=== PATIENT | female | born 1940 | race Caucasian/White ===

== ENCOUNTER → 2017-04-27 | Outpatient (CLI) | payer OTHER | LOC: BRMIMAGING 10:01 | PROVIDERS: ATTEND Family Medicine | DX: Z13.820 Encounter for screening for osteoporosis (principal); M85.89 Other specified disorders of bone density and structure, multiple sites ==

== ENCOUNTER → 2018-04-27 | Outpatient (CLI) | payer OTHER | LOC: FIMAGING 14:33 | PROVIDERS: ATTEND Family Medicine | DX: M25.512 Pain in left shoulder (principal); R20.0 Anesthesia of skin ==

== ENCOUNTER → 2018-05-05 | Outpatient (CLI) | payer OTHER | LOC: BHFA 15:30 | PROVIDERS: ATTEND Internal Medicine Cardiovascular Disease | DX: I35.0 Nonrheumatic aortic (valve) stenosis (principal); R42 Dizziness and giddiness ==

== ENCOUNTER 2018-05-06 10:18 | Inpatient (IN) | payer OTHER ==
--- NOTE | 2018-05-06 10:48 | EDPHY ---
H & P Stated Complaint: SOB, dizzy - Personal History Current Tetanus/Diphtheria Vaccine: Unsure Current Tetanus Diphtheria and Acellular Pertussis (TDAP): Unsure - Medical/Surgical History Hx Asthma: No Hx Chronic Respiratory Disease: No Hx Diabetes: No Hx Cardiac Disease: Yes Hx Renal Disease: No Hx Cirrhosis: No Hx Alcoholism: No Hx HIV/AIDS: No Hx Splenectomy or Spleen Trauma: No Other PMH: osteopenia - Social History Smoking Status: Never smoked Time Seen by Provider: 05/06/18 10:39 HPI/ROS: CHIEF COMPLAINT: "My doctor told me to vann over here" HISTORY OF PRESENT ILLNESS: 77-year-old female via private vehicle accompanied by daughter and who described receiving a phone call from her PCP Dr. Carolina Hunt after receiving her echocardiography report from yesterday told the patient to come to the ER "to get my heart valve replaced". Patient describes no prior cardiac history history, describes going to Dr. Carolina Hunt recently for complaints of feeling dizzy and near syncope for the past 1 month with no syncopal episodes. Not related to activity. No current complaints of chest pain or dyspnea. PRIMARY CARE PROVIDER: Dr. Carolina Hunt REVIEW OF SYSTEMS: 10 systems reviewed and negative with the exception of the elements mentioned in the history of present illness PAST MEDICAL & SURGICAL HISTORY: Osteopenia. Bicuspid aorta. SOCIAL HISTORY:Nonsmoker. No drug use. . PHYSICAL EXAM (Prior to examination, patient consented to physical exam, hands were washed and my usual and customary physical exam procedures followed) 1) GENERAL: Well-developed, well-nourished, alert and oriented. Appears to be in no acute distress. 2) HEAD: Normocephalic, atraumatic 3) HEENT: Pupils equal, round, reactive to light bilaterally. Sclera anicteric. 4) NECK: Full range of motion, no meningeal signs. No carotid bruit 5) LUNGS: Clear auscultation bilaterally, no wheezes, no rhonchi, no retractions. 6) HEART: Blowing holosystolic murmur. Regular rate and rhythm, no murmur, no heave, no gallop. 7) ABDOMEN: No guarding, no rebound, no focal tenderness, negative McBurney's, negative Rossi's, negative Rovsing's, negative peritoneal sign, 8) MUSCULOSKELETAL: Moving all extremities, no focal areas of tenderness, no obvious trauma. No peripheral edema or discoloration. 9) BACK: No CVA tenderness, no midline vertebral tenderness, no fluctuance, no step-off, no obvious trauma, no visual or palpable abnormality. 10) SKIN: No rash, no petechiae. 11) Psychiatric: Patient is oriented X 3, there is no agitation. DIFFERENTIAL DIAGNOSIS: In no particular order, including but not limited to myocardial ischemia, pulmonary embolus, chest wall pain, pleural inflammation and pulmonary infectious causes. (Don Albright) Constitutional: Initial Vital Signs Temperature (C) 37.1 C 05/06/18 10:23 Heart Rate 105 H 05/06/18 10:23 Respiratory Rate 16 05/06/18 10:23 Blood Pressure 175/106 H 05/06/18 10:23 O2 Sat (%) 95 05/06/18 10:23 O2 Delivery Mode Room Air Allergies/Adverse Reactions: No Known Allergies Allergy (Verified 05/06/18 11:38) Home Medications: Medication Instructions Recorded Alendronate Sodium [Fosamax 70 MG 70 mg PO LOCKETT@0700 05/06/18 (*)] Aspirin [Aspirin 81mg (*)] 81 mg PO DAILY 05/06/18 Cholecalciferol Vit D3 [Vitamin D3 1,000 units PO DAILY 05/06/18 (*)] Multivitamins [Multivitamin (*)] 1 each PO DAILY 05/06/18 Medical Decision Making - Diagnostics Imaging Results: Imaging Impressions Chest X-Ray 05/06/18 10:40 Impression: Normal. ED Course/Re-evaluation: 10:47 a.m.: Care of patient under supervision of secondary supervising physician Dr Andre Argueta who also evaluated the patient . 10:50 a.m.: Telephonic consultation with Dr. Ankit Lzaaro cardiology who will come to the ER to evaluate patient. 11:12 a.m.: Phone call from Salvador Castro cardiology informs me that patient will be taking the cardiac catheterization lab this afternoon, requests admission to hospitalist service. 11:29 a.m.: Consultation with hospitalist, admit to Dr. Romero (Don Albright ) Other Provider: PHYSICIAN DOCUMENTATION: The patient was evaluated and managed by the Physician Submarine Worker and myself. I have reviewed the chart and agree with the findings and plan of care as documented. In addition, I examined the patient myself at 1124. History confirmed as lightheadedness, recent echo showing worsening and severe aortic stenosis. Physical findings as follows: Regular rate rhythm with a 3/6 systolic murmur. Admission for cardiology consultation, CT surgery consultation. I am the secondary supervising physician. (Andre Argueta) - Data Points Laboratory Results: Laboratory Results 05/06/18 10:46 05/06/18 10:46 05/06/18 05/06/18 05/06/18 10:51 10:46 10:46 WBC RBC Hgb Hct MCV MCH MCHC RDW Plt Count MPV Neut % (Auto) Lymph % (Auto) [place] % (Auto) Eos % (Auto) Baso % (Auto) Nucleat RBC Rel Count Absolute Neuts (auto) Absolute Lymphs (auto) Absolute Monos (auto) Absolute Eos (auto) Absolute Basos (auto) Absolute Nucleated RBC Immature Gran % Immature Gran # PT 12.9 SEC SEC (12.0-15.0) INR 0.95 (0.83-1.16) APTT 27.8 SEC SEC (23.0-38.0) D-Dimer 0.31 ug/mLFEU ug/mLFEU (0.00-0.50) Sodium 140 mEq/L mEq/L (135-145) Potassium 4.1 mEq/L mEq/L (3.3-5.0) Chloride 106 mEq/L mEq/L (97-110) Carbon Dioxide 23 mEq/l mEq/l (22-31) Anion Gap 11 mEq/L mEq/L (6-14) BUN 19 mg/dL mg/dL (7-23) Creatinine 0.7 mg/dL mg/dL (0.6-1.0) Estimated GFR > 60 Glucose 117 mg/dL H mg/dL (70-100) Calcium 10.2 mg/dL mg/dL (8.5-10.4) POC Troponin I 0.00 ng/mL ng/mL (0.00-0.08) 05/06/18 10:46 WBC 8.51 10^3/uL 10^3/uL (3.80-9.50) RBC 5.06 10^6/uL 10^6/uL (4.18-5.33) Hgb 14.7 g/dL g/dL (12.6-16.3) Hct 42.9 % % (38.0-47.0) MCV 84.8 fL fL (81.5-99.8) MCH 29.1 pg pg (27.9-34.1) MCHC 34.3 g/dL g/dL (32.4-36.7) RDW 13.1 % % (11.5-15.2) Plt Count 236 10^3/uL 10^3/uL (150-400) MPV 12.2 fL H fL (8.7-11.7) Neut % (Auto) 68.3 % % (39.3-74.2) Lymph % (Auto) 21.5 % % (15.0-45.0) [place] % (Auto) 8.1 % % (4.5-13.0) Eos % (Auto) 1.1 % % (0.6-7.6) Baso % (Auto) 0.5 % % (0.3-1.7) Nucleat RBC Rel Count 0.0 % % (0.0-0.2) Absolute Neuts (auto) 5.82 10^3/uL 10^3/uL (1.70-6.50) Absolute Lymphs (auto) 1.83 10^3/uL 10^3/uL (1.00-3.00) Absolute Monos (auto) 0.69 10^3/uL 10^3/uL (0.30-0.80) Absolute Eos (auto) 0.09 10^3/uL 10^3/uL (0.03-0.40) Absolute Basos (auto) 0.04 10^3/uL 10^3/uL (0.02-0.10) Absolute Nucleated RBC 0.00 10^3/uL 10^3/uL (0-0.01) Immature Gran % 0.5 % % (0.0-1.1) Immature Gran # 0.04 10^3/uL 10^3/uL (0.00-0.10) PT INR APTT D-Dimer Sodium Potassium Chloride Carbon Dioxide Anion Gap BUN Creatinine Estimated GFR Glucose Calcium POC Troponin I Point of Care Test Results: Chemistry 05/06/18 10:51 POC Troponin I 0.00 ng/mL ng/mL (0.00-0.08) Departure - Departure Disposition: [facility] Acute Clinical Impression: Aortic stenosis with bicuspid valve Condition: Fair
[2018-05-06 11:03] LABS: PLATELET COUNT 236 10^3/uL (150-400)
[2018-05-06 11:23] LABS: INR 0.95 (0.83-1.16); PROTIME(PATIENT) 12.9 SEC (12.0-15.0)
--- NOTE | 2018-05-06 12:08 | CPEKG ---
Test Reason : OPEN Blood Pressure : / mmHG Vent. Rate : 089 BPM Atrial Rate : 090 BPM P-R Int : 132 ms QRS Dur : 078 ms QT Int : 343 ms P-R-T Axes : 032 -32 144 degrees QTc Int : 418 ms Sinus rhythm LVH with secondary repolarization abnormality Confirmed by Andre Argueta ([id number]) on 05/06/2018 12:08:09 PM Referred By: Confirmed By:Andre Argueta
[2018-05-06] MEDS ORDERED: TEMAZEPAM 15 MG CAP PO PRN (12:48)
[2018-05-06] MEDS ORDERED: DIAZEPAM 5 MG TAB PO ONE (12:48)
[2018-05-06] MEDS ORDERED: ASPIRIN EC 325 MG TAB PO ONE ×2 (12:48→15:19)
[2018-05-06] MEDS ORDERED: diphenhydrAMINE 25 MG CAP PO ONE ×2 (12:48→15:19)
[2018-05-06] MEDS ORDERED: FAMOTIDINE 20 MG TAB PO ONE (12:48)
[2018-05-06] MEDS ORDERED: NITROGLYCERIN 0.4 MG BTL SL PRN (12:48)
[2018-05-06] MEDS ORDERED: NS 1,000 ML IV SCH (13:00)
--- NOTE | 2018-05-06 13:47 | GCON ---
CARDIOLOGY CONSULTATION INDICATION FOR CARDIOLOGY CONSULTATION: Known severe aortic stenosis. REQUESTING PHYSICIAN: GEOVANNY Gomez, Emergency Department Services. HISTORY OF PRESENT ILLNESS: Ms. Harding is a 77-year-old female. She has significant past history of known aortic stenosis, questionable history of questionable bicuspid aortic valve. She reports over the last month she has been noticing lightheadedness, mostly when she is standing. This usually res olves when she sits down. She reports no palpitations at the time of her symptoms. She has also not ed some mild shortness of breath, feeling that potentially this may have also worsened in the last mo nth. She denies any chest pressure or pain. She does state that she had recently seen her PCP, Dr. Carolina Hunt, who had her undergo echocardiogram, which she had performed last night at [facility]. It was noted that she had a normal LV size and systolic function with EF of 60% with normal wall mo tion, she had borderline concentric LVH with mild diastolic dysfunction, her LA was mildly enlarged, her aortic valve was noted to be critically stenosed, with a peak gradient of 80 mmHg and a mean grad ient of 54 mmHg and a valve area of 0.7 cm2. In comparison to previous echos in 2013, her mean gradi ent went from 24 mmHg to 54 mmHg. Due to this, her PCP's office called her this morning and asked he r to come to the emergency department for further evaluation. At current time, at my examination, laura ricketts denies any palpitations, orthopnea, PND, edema, actual syncope, or symptoms suggestive of TIA or CV A. PAST MEDICAL HISTORY: Patient with significant past medical history that includes aortic stenosis as mentioned above, osteopenia, and osteoarthritis. PAST SURGICAL HISTORY: Tonsillectomy, appendectomy, and wisdom teeth removal. FAMILY HISTORY: Patient reports father had valvular heart disease, which was diagnosed in his 70s, b ut she is uncertain of what. Denies any family history of coronary artery disease, denies any family history of sudden cardiac . SOCIAL HISTORY: She is retired, she lives with her , she [place]birds between [place] and [facility]. She denies any tobacco abuse, she occasionally drinks alcohol less than once a week, and denies any illicit drug use. ALLERGIES: Patient reports no known allergies. HOME MEDICATIONS: Multivitamins 1 tablet p.o. daily, aspirin 81 mg p.o. daily, Fosamax 70 mg p.o. ev phyllis Thursday, and vitamin D 1000 units p.o. daily. REVIEW OF SYSTEMS: A 10-point review of systems done on patient all negative except as mentioned abo ve. PHYSICAL EXAMINATION: GENERAL APPEARANCE: Short statured, mildly obese, female. She is a lert and oriented to person, place, time, and situation. Appears to be under no acute distress. VIT AL SIGNS: Current vital signs are blood pressure of 144/78; heart rate of 81, sinus rhythm on the thu itor; respirations are 16; saturating 97% on room air; temperature of 36.8 degrees Celsius. HEENT: Head is normocephalic. Lips and tongue are pink and moist with no signs of cyanosis. Conjunctivae p ink. NECK: Trachea is midline, +2 carotid pulses bilateral, no auscultated bruits, no jugular vein distention. RESPIRATORY: Lungs are clear to auscultation. No rhonchi, rales, or wheezes; no access ory muscle use; no intercostal muscle retraction noted. CARDIAC: Regular rate, regular rhythm; S1, S2; no S3, S4; 4/6 systolic murmur noted right and left upper chest. ABDOMEN: Soft, nontender, thad l sounds x4 quadrants, no organomegaly, no palpable masses. SKIN: [place], warm, dry, no cyanosis, no clubbing, no peripheral edema. VASCULAR: +2 carotids bilateral, +2 radials bilateral, +2 dorsal ped al and posterior tibial pulses bilateral. LABORATORY STUDIES: Laboratory studies drawn today show WBC of 8.51, hemoglobin of 14.7, hematocrit of 42.9, platelet count of 236, INR 0.95, D-dimer 0.31, sodium 140, potassium 4.1, chloride 106, CO2 23, BUN 19, creatinine 0.7, glucose 117, calcium 10.2, troponin 0.00. STUDIES: Echocardiogram done at [facility] yesterday showing normal LV size and systolic function with EF of 60% with no wall motion abnormalities, concentric LVH and mild diastolic dysfunction note d, borderline left atrial enlargement, critical aortic stenosis with moderate AI with peak and mean g radients of 80 mmHg and 54 mmHg, respectively. MIRI was measured at 0.7 cm2. Mild MR without mitral valve prolapse, mild TR with estimated mild pulmonary hypertension, ascending aorta measured at 4.4 c m. Electrocardiogram done today showing sinus rhythm, normal axis, early R-wave progression in anter ior leads. Leftward axis. Chest x-ray showing no acute cardiopulmonary disease. ASSESSMENT AND PLAN: Critical aortic stenosis. Patient reporting episodes of lightheadedness, she h as had significantly worsened aortic stenosis, now considered critical with a mean gradient of 54 and a peak gradient of 80 mmHg, valve area was measured at 0.7 cm2. Her LV function has maintained with in normal limits, she shows no signs of heart failure. She is in fairly healthy respect status. At this time, patient potentially needs to have aortic valve replacement and repair. Was also noted to have dilated ascending aorta at 4.4, potentially this could also be fixed at this time. We will plan for her to undergo right and left heart catheterization, to be performed by Dr. Marie, risks and be nefits of this procedure were explained to the patient and her family, they verbalized understanding and are wanting to proceed. Pending results of testing, we will then consult CT Surgery for their ev aluation of her valvular heart disease. Thank you for this consultation. Further recommendations will come post catheterization. /[id number]/MODL
[2018-05-06] MEDS ORDERED: LIDOCAINE 1% 300 MG/30 ML SDV ONE (14:54)
[2018-05-06] MEDS ORDERED: MIDAZOLAM 2 MG/2 ML VIAL ONE (14:54)
[2018-05-06] MEDS ORDERED: IOPAMIDOL (ISOVUE-370) 150 ML BTL IV ONE (14:54)
[2018-05-06] MEDS ORDERED: fentaNYL 100 MCG/2 ML INJ ONE (14:54)
--- NOTE | 2018-05-06 15:04 | PDGENHP ---
History and Physical - Chief Complaint dizzyness - History of Present Illness 77-year-old female via private vehicle accompanied by daughter and who described receiving a phone call from her PCP Dr. Carolina Hunt after receiving her echocardiography report from yesterday told the patient to come to the ER "to get my heart valve replaced". Patient describes no prior cardiac history history, describes going to Dr. Carolina Hunt recently for complaints of feeling dizzy and near syncope for the past 1 month with no syncopal episodes. Not related to activity. No current complaints of chest pain or dyspnea. Cardiology consulted by the ER. Currently NPO. no cp or sob. PRIMARY CARE PROVIDER: Dr. Carolina Hunt PAST MEDICAL & SURGICAL HISTORY: Osteopenia. Bicuspid aorta. tonsillectomy, OA, SOCIAL HISTORY:Nonsmoker. No drug use. . FMHx: ? valvular heart disease History Information - Allergies/Home Medication List Allergies/Adverse Reactions: No Known Allergies Allergy (Verified 05/06/18 11:38) Home Medications: Alendronate Sodium [Fosamax 70 MG (*)] 70 mg PO LOCKETT@0700 05/06/18 [Last Taken 10/14] Aspirin [Aspirin 81mg (*)] 81 mg PO DAILY 05/06/18 [Last Taken 05/04/18] Cholecalciferol Vit D3 [Vitamin D3 (*)] 1,000 units PO DAILY 05/06/18 [Last Taken Unknown] Multivitamins [Multivitamin (*)] 1 each PO DAILY 05/06/18 [Last Taken Unknown] I have personally reviewed and updated: medical history, social history - Social History Smoking Status: Never smoked Review of Systems Review of Systems: ROS: 10pt was reviewed & negative except for what was stated in HPI & below Physical Exam Physical Exam: Temp Pulse Resp BP Pulse Ox 36.6 C 83 16 171/85 H 96 05/06/18 13:16 05/06/18 13:16 05/06/18 13:16 05/06/18 13:16 05/06/18 13:16 Constitutional: no apparent distress Eyes: PERRL Ears, Nose, Mouth, Throat: moist mucous membranes, hearing normal Cardiovascular: regular rate and rhythym, systolic murmur Respiratory: no respiratory distress, no rales or rhonchi, clear to auscultation Gastrointestinal: normoactive bowel sounds Skin: warm Neurologic: AAOx3 Psychiatric: interacting appropriately, not anxious, not encephalopathic Lymph, Heme, Immunologic: No petechiae Lab Data & Imaging Review 05/06/18 10:46 05/06/18 10:46 WBC 8.51 10^3/uL (3.80-9.50) 05/06/18 10:46 RBC 5.06 10^6/uL (4.18-5.33) 05/06/18 10:46 Hgb 14.7 g/dL (12.6-16.3) 05/06/18 10:46 Hct 42.9 % (38.0-47.0) 05/06/18 10:46 MCV 84.8 fL (81.5-99.8) 05/06/18 10:46 MCH 29.1 pg (27.9-34.1) 05/06/18 10:46 MCHC 34.3 g/dL (32.4-36.7) 05/06/18 10:46 RDW 13.1 % (11.5-15.2) 05/06/18 10:46 Plt Count 236 10^3/uL (150-400) 05/06/18 10:46 MPV 12.2 fL (8.7-11.7) H 05/06/18 10:46 Neut % (Auto) 68.3 % (39.3-74.2) 05/06/18 10:46 Lymph % (Auto) 21.5 % (15.0-45.0) 05/06/18 10:46 [place] % (Auto) 8.1 % (4.5-13.0) 05/06/18 10:46 Eos % (Auto) 1.1 % (0.6-7.6) 05/06/18 10:46 Baso % (Auto) 0.5 % (0.3-1.7) 05/06/18 10:46 Nucleat RBC Rel Count 0.0 % (0.0-0.2) 05/06/18 10:46 Absolute Neuts (auto) 5.82 10^3/uL (1.70-6.50) 05/06/18 10:46 Absolute Lymphs (auto) 1.83 10^3/uL (1.00-3.00) 05/06/18 10:46 Absolute Monos (auto) 0.69 10^3/uL (0.30-0.80) 05/06/18 10:46 Absolute Eos (auto) 0.09 10^3/uL (0.03-0.40) 05/06/18 10:46 Absolute Basos (auto) 0.04 10^3/uL (0.02-0.10) 05/06/18 10:46 Absolute Nucleated RBC 0.00 10^3/uL (0-0.01) 05/06/18 10:46 Immature Gran % 0.5 % (0.0-1.1) 05/06/18 10:46 Immature Gran # 0.04 10^3/uL (0.00-0.10) 05/06/18 10:46 PT 12.9 SEC (12.0-15.0) 05/06/18 10:46 INR 0.95 (0.83-1.16) 05/06/18 10:46 APTT 27.8 SEC (23.0-38.0) 05/06/18 10:46 D-Dimer 0.31 ug/mLFEU (0.00-0.50) 05/06/18 10:46 Sodium 140 mEq/L (135-145) 05/06/18 10:46 Potassium 4.1 mEq/L (3.3-5.0) 05/06/18 10:46 Chloride 106 mEq/L (97-110) 05/06/18 10:46 Carbon Dioxide 23 mEq/l (22-31) 05/06/18 10:46 Anion Gap 11 mEq/L (6-14) 05/06/18 10:46 BUN 19 mg/dL (7-23) 05/06/18 10:46 Creatinine 0.7 mg/dL (0.6-1.0) 05/06/18 10:46 Estimated GFR > 60 05/06/18 10:46 Glucose 117 mg/dL (70-100) H 05/06/18 10:46 Calcium 10.2 mg/dL (8.5-10.4) 05/06/18 10:46 POC Troponin I 0.00 ng/mL (0.00-0.08) 05/06/18 10:51 Assessment & Plan Assessment: #Critical Aortic stenosis #HTN Plan: Cards following Cardiac Cath today with consideration for cardiothoracic surgery pending results Hydralazine PRN HTN NPO
[2018-05-06] MEDS ORDERED: hydrALAZINE 20 MG/ML VIAL IVP PRN (15:05)
[2018-05-06] MEDS ORDERED: DIAZEPAM 5 MG TAB ONE (15:19)
[2018-05-06] MEDS ORDERED: FAMOTIDINE 20 MG TAB ONE (15:19)
[2018-05-06] MEDS ORDERED: VERAPAMIL 5 MG/2 ML VIAL ONE (15:25)
[2018-05-06] MEDS ORDERED: HEPARIN 10,000 UNIT/10 ML MDV (1,000 UNIT/ML) ONE (15:25)
[2018-05-06] MEDS ORDERED: ATROPINE SULFATE 1 MG/10 ML SYR IVP PRN (16:53)
[2018-05-06] MEDS ORDERED: ONDANSETRON 4 MG/2 ML VIAL IVP PRN (16:53)
--- NOTE | 2018-05-06 19:39 | CPIP ---
DATE OF PROCEDURE: 05/06/2018 PROCEDURE PERFORMED: 1. Selective coronary angiography. 2. Left heart catheterization. 3. Left ventriculogram. 4. TR band arteriotomy repair. This was a left radial artery approach. COMPLICATIONS: None. INDICATOIN FOR THE PROCEDURE/APPROPRIATE USE CRITERIA: The patient developed symptomatic dizziness a nd had a loud murmur on exam, ultimately underwent an echocardiogram and was found to have critical a ortic stenosis. She was admitted to the hospital and I was asked to see her for consultation for clifford nary angiography to prep for possible valve surgery and determine if she has coronary disease to help determine whether she would be a better candidate for TAVR versus an open aortic valve replacement s urgphyllis. PROCEDURE IN DETAIL: After informed consent was obtained, n.p.o. status was confirmed, the region of the left wrist was cleaned, prepped, and draped in sterile fashion. A plethysmography and trace assi sted Jorge test was performed documenting dual arterial supply to the left index finger. The patient then underwent the previously mentioned diagnostic procedures with the use of a AL1, JL35, and a 5-Fr ench pigtail catheter. Standard wire exchange technique was utilized for all catheter exchanges. 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 It was best selectively injected with an AL1 catheter. We took a single picture of that , documenting a dominant right coronary, which gives rise to the posterior descending distally. There was brisk and CORNELIA-3 flow to the distal vessel. The left main coronary lumen was selectively injecte d with a JL 35 diagnostic catheter. The left main is approximately 6 mm in size and bifurcates into a n LAD and circumflex system. The LAD arises in its usual location, giving rise to 3 important diagona l vessels and courses the anterior apex without flow-limiting obstruction, dissection, or thrombus. T he left circumflex obtuse marginal system is widely patent and a 4 mm vessel without evidence of sign ificant coronary artery disease, plaque formation or other problems. We then used the AL1 catheter and a straight Glidewire to cross the aortic valve. The AL1 catheter wa s advanced into the ventricle and the AL1 was switched out over a standard J-wire for a pigtail scout ter. The systolic pressure was documented to be 205 with an LVEDP of 17. The patient underwent left v entriculogram in the BARROSO projection, demonstrating preserved and hypercontractile left ventricular sy stolic function under pressurized injection. The ejection fraction was estimated to be 65-70 percent. The visualized portion of the thoracic aorta revealed a dilated aortic root which is known to be ane urysmal and was measured to be 4.4 cm by echocardiogram. The patient was noted to have a gradient upo n pullback of approximately 42 mmHg. We did not have a Yuri catheter that was 5-Czech in size an d therefore did not do simultaneous pressures. However, the overall peak to peak gradient appeared to be around 40, which is less than was estimated by echocardiography. SUMMARY OF FINDINGS: 1. Normal left ventricular chamber size with preserved left ventricular and hypercontractile left ve ntricular systolic function. Ejection fraction is 65-70 percent. There is mildly elevated left ventri cular end-diastolic pressure. 2. Severe aortic stenosis is present along with a mildly dilated ascending thoracic aortic aneurysm. 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 No evidence of significant coronary disease, dissection, or thromb us was noted. The patient has a normal coronary system. PLAN: The patient appears to be a good candidate for either open repair or surgery. Certainly, her a ge would likely favor a TAVR as well as the fact that her thoracic cage is fairly small and she is a fairly small woman in stature. She may be best served with a trans aortic valve replacement as oppose d to an open surgical repair. I have asked Dr. Festus Thomas to see her in consultation who is facile on both of those techniques and he will render opinion as to what might be the best operation for this 77-year-old lady. /[id number]/MODL
[2018-05-06] MEDS: ACETAMINOPHEN 325 MG TAB PO PRN (20:04)
[2018-05-07] MEDS ORDERED: IOPAMIDOL (ISOVUE 370) 100 ML BTL IV ONE (08:55)
--- NOTE | 2018-05-07 12:57 | HOSPPROG ---
Hospitalist Progress Note Assessment/Plan: #Critical Aortic stenosis #Ascending Thoracic Aortic aneurysm #HTN Plan: Cards following. Cardiac cath with no significant CAD. They feel that she is a good candidate for either TAVR or open aortic valve replacement. Cardiothoracic surgery has been consulted, reccs pending Hydralazine PRN HTN Subjective: no cp or sob. no n/v. bp is better today Objective: Vital Signs Temp Pulse Resp BP Pulse Ox 36.9 C 76 18 160/88 H 92 05/07/18 12:00 05/07/18 12:00 05/07/18 12:00 05/07/18 12:00 05/07/18 12:00 05/06/18 05/07/18 05/08/18 05:59 05:59 05:59 Intake Total 900 Balance 900 PT 12.9 SEC (12.0-15.0) 05/06/18 10:46 INR 0.95 (0.83-1.16) 05/06/18 10:46 - Physical Exam Constitutional: no apparent distress Eyes: PERRL, EOMI Ears, Nose, Mouth, Throat: moist mucous membranes Cardiovascular: regular rate and rhythym, No no murmur, rub, or gallop, No edema Respiratory: no respiratory distress, no rales or rhonchi Gastrointestinal: normoactive bowel sounds, soft, non-tender abdomen Skin: warm Neurologic: AAOx3 Psychiatric: interacting appropriately, not anxious, not encephalopathic Lymph, Heme, Immunologic: No petechiae ICD10 Worksheet Patient Problems: Problems Problem Status Onset Aortic stenosis with bicuspid valve Acute
--- NOTE | 2018-05-07 14:09 | ASMTCMCOM ---
CM Note CM Note Notes: CM spoke to VILLA Deluna about this pt. Pt is a 77 y/o female admitted for near syncope and aortic stenosis. CT will determine if pt will have TAVR or open heart. Needs are TBD at this time. CM to follow. Plan: TBD Date Signed: 05/07/2018 02:06 PM Electronically Signed By:ADRIAN Peraza
--- NOTE | 2018-05-07 14:10 | PDCTREPORT ---
Cardiothoracic Procedure Rpt Cardiothoracic Procedure Report: Asked to see this 77 year old for severe and dizzines/presyncope Cath shows normal coronaries Echo pk cory 4.6m/s. nl LVEF, small LVOT there is a small ascending aortic enlargement Rec TAVR due to increased surgical risk from age and frailty Plan is for CT today and TAVR thursday Patient Problems: Problems Problem Status Onset Aortic stenosis with bicuspid valve Acute
--- NOTE | 2018-05-07 14:11 | PDCARPN ---
Cardiology Progress Note Chief Complaint: Patient reports she is nervous, would like to go home. Assessment/Plan: Assessment: 77-year-old female with past history of hypertension and aortic stenosis, with recent echocardiogram showing worsening stenosis, echocardiogram done on 2017 noting normal LV size and systolic function with EF of 60% with no wall motion abnormalities, concentric LVH and mild diastolic dysfunction, borderline LA enlargement, critical aortic stenosis with moderate AI with peak gradient of 80 mm Hg and mean gradient of 54 mm Hg. MIRI measuring 0.7 cm2, mild MR without mitral valve prolapse, mild TR, dilated ascending aorta at 4.4 cm. Sent to the ER yesterday by PCP, due to worsening , and episodes of lightheadedness over last month. Underwent cardiac catheterization by Dr. Marie on 05/06/2018 noting no significant flow limiting CAD. Preserved LV with hypercontractility systolic function. Patient has been seen by CT surgery, Dr. Bergman. 05/07/2108: Patient reports no chest pain, pressure, or shortness of breath. She denies of any episodes of lightheadedness during her hospitalization. She has underwent carotid ultrasound, which noted no flow limiting disease. CTA of chest and abdomen have been done, results currently pending. Patient noted on continuous cardiac monitoring this morning to have a 20 sec run of SVT with rates up to 150 BPM. Patient reports she was asymptomatic. Plan: 1. Critical : Patient being evaluated by CT surgery, CT scans pending. Defer to CT surgery, with consideration of patient undergoing open valve replacement versus TAVR. Have spoken to valve clinic clerk. 2. Ascending aorta aneurysm: Defer to CT surgery. 3. Run of SVT: Patient was asymptomatic, rate up to 150 BPM lasting for approximately 20 sec. At 7:30 a.m. This morning. Will start her on metoprolol tartrate at 12.5 mg p.o. Twice daily. 4. Hypertension: Patient noted to have elevated blood pressures since hospital admission. Started on beta-kaleigh as mentioned above. Would avoid any medication that would reduce preload due to her critical aortic stenosis. 05/07/18 14:21 Subjective: Patient denies of any chest pressure, pain, shortness of breath palpitations, lightheadedness, near-syncope, or syncopal events. Reports no symptoms suggestive of TIA or CVA. Reviewed/Discussed With: hospitalist (Dr Romero), other (Dr. Marie and Mary Delarosa RN, valve clinic clerk) Objective: Vital Signs (8 Hrs) Temp Pulse Resp BP Pulse Ox 05/07/18 12:00 36.9 C 76 18 160/88 H 92 05/07/18 07:23 36.4 C 92 16 152/77 H 92 Intake/Output (24 Hrs) 05/06/18 05/07/18 05/08/18 05:59 05:59 05:59 Intake Total 900 Balance 900 Intake: Oral (ml) 300 IV Intake (ml) 600 Other: Weight 67.585 kg Number of Voids Toilet 1 Result Diagrams: 05/06/18 10:46 05/06/18 10:46 - Physical Exam Constitutional: WDWN, no apparent distress Ears, Nose, Mouth, Throat: moist mucous membranes Cardiovascular: regular rate and rhythm, systolic murmur (4/6 systolic murmur upper chest.), pulses symmetric bilat, No jugular vein distention Peripheral Pulses: 2+: carotid (R), carotid (L), dorsalis-pedis (R), dorsalis- pedis (L) Respiratory: clear to auscultate bilat, no crackles, no wheezes Gastrointestinal: normoactive bowel sounds Skin: warm, no edema, other (Left wrist, catheter insertion site, with no redness, swelling, drainage, or ecchymosis.) Neurologic: AAOx3 Psychiatric: cooperative, interactive, following commands ICD10 Worksheet Patient Problems: Problems Problem Status Onset Aortic stenosis with bicuspid valve Acute
[2018-05-07] MEDS: METOPROLOL TARTRATE 25 MG TAB PO SCH ×2 (15:10→21:40)
--- NOTE | 2018-05-07 16:43 | PDMN ---
Medical Necessity Medical necessity: Change to IP, as of 05/07/18, per & MCG MG-C (Cardiology); los >2 mn for ongoing management of critical aortic stenosis w/severe dizziness , HTN, run of SVT & ascending aortic aneurysm; requiring Cardiothoracic surgery consult w/TAVR & med management; comorbid advanced age
[2018-05-08] MEDS: METOPROLOL TARTRATE 25 MG TAB PO SCH ×2 (09:09→21:32)
--- NOTE | 2018-05-08 11:02 | PDCARPN ---
Cardiology Progress Note Assessment/Plan: Assessment: 1. Critical (symptomatic) Plan: -CT surgery consultation today -Plan for TAVR Thursday, May 10, 2018 05/08/18 10:59 Subjective: Mrs. Harding is a pleasant 77 year old female with symptomatic critical admitted with near syncope, lightheadedness and hastings. She has been feeling well today. No syncope, chest pain or sob at rest. Telemetry demonstates NSR with occaisonal PAC with compensatroy pause. Reviewed/Discussed With: multidisciplinary team Objective: Vital Signs (8 Hrs) Temp Pulse Resp BP Pulse Ox 05/08/18 07:32 36.5 C 66 17 148/79 H 91 L 05/08/18 04:00 36.6 C 68 16 128/71 H 92 Intake/Output (24 Hrs) 05/07/18 05/08/18 05/09/18 05:59 05:59 05:59 Intake Total 920 Output Total 550 300 Balance 370 -300 Intake: Oral (ml) 920 Output: Urine (ml) 550 300 Toilet 550 300 Other: Weight 67.8 kg Number of Voids Toilet 1 1 Number of Stools Toilet 1 Result Diagrams: 05/06/18 10:46 05/06/18 10:46 - Physical Exam Cardiovascular: regular rate and rhythm, systolic murmur Respiratory: clear to auscultate bilat Neurologic: AAOx3, CN II-XII grossly intact Psychiatric: cooperative, interactive, following commands ICD10 Worksheet Patient Problems: Problems Problem Status Onset Aortic stenosis with bicuspid valve Acute
--- NOTE | 2018-05-08 11:34 | ASMTCMCOM ---
CM Note CM Note Notes: Plan is for TAVR Thursday 05/10. PT/OT will consult post-operatively. Case Mangement will follow. Date Signed: 05/08/2018 11:33 AM Electronically Signed By:Cassidy Christianson RN
--- NOTE | 2018-05-08 13:04 | HOSPPROG ---
Hospitalist Progress Note Assessment/Plan: #Critical Aortic stenosis #Ascending Thoracic Aortic aneurysm #HTN -Metoprolol #SVT: Metoprolol Plan: Cards following. Cardiac cath with no significant CAD. They feel that she is a good candidate for either TAVR or open aortic valve replacement. Cardiothoracic surgery has been consulted and will see today Likely TAVR on Thursday cont Metoprolol, started in this hospitalizaton Subjective: no cp or sob. no n/v Objective: Vital Signs Temp Pulse Resp BP Pulse Ox 36.6 C 73 16 147/73 H 95 05/08/18 11:45 05/08/18 11:45 05/08/18 11:45 05/08/18 11:45 05/08/18 11:45 05/07/18 05/08/18 05/09/18 05:59 05:59 05:59 Intake Total 920 Output Total 550 400 Balance 370 -400 PT 12.9 SEC (12.0-15.0) 05/06/18 10:46 INR 0.95 (0.83-1.16) 05/06/18 10:46 - Physical Exam Constitutional: no apparent distress Eyes: PERRL, EOMI Ears, Nose, Mouth, Throat: moist mucous membranes, hearing normal Cardiovascular: regular rate and rhythym Respiratory: no respiratory distress, no rales or rhonchi, clear to auscultation Gastrointestinal: normoactive bowel sounds, soft, non-tender abdomen Skin: warm Neurologic: AAOx3 Psychiatric: interacting appropriately, not anxious, not encephalopathic Lymph, Heme, Immunologic: No petechiae ICD10 Worksheet Patient Problems: Problems Problem Status Onset Aortic stenosis with bicuspid valve Acute
--- NOTE | 2018-05-08 15:49 | SOAPPROG ---
KENAN Progress Note Assessment/Plan: Assessment: Full consult dictated. Symptomatic severe . Age and frailty makes her moderate risk for surgical AVR. Good candidate for TAVR. Plan: 05/08/18 15:48 Objective: Vital Signs Temp Pulse Resp BP Pulse Ox 36.7 C 66 16 155/87 H 95 05/08/18 15:34 05/08/18 15:34 05/08/18 15:34 05/08/18 15:34 05/08/18 15:34 05/07/18 05/08/18 05/09/18 05:59 05:59 05:59 Intake Total 920 Output Total 550 400 Balance 370 -400 PT 12.9 SEC (12.0-15.0) 05/06/18 10:46 INR 0.95 (0.83-1.16) 05/06/18 10:46 ICD10 Worksheet Patient Problems: Problems Problem Status Onset Aortic stenosis with bicuspid valve Acute
[2018-05-08] MEDS: ACETAMINOPHEN 325 MG TAB PO PRN (21:36)
--- NOTE | 2018-05-09 03:03 | GCON ---
DATE OF CONSULTATION: 05/08/2018 REASON FOR CONSULTATION: Severe aortic stenosis. HISTORY OF PRESENT ILLNESS: A 77-year-old female admitted to the hospital with a history of dizzines s and near-syncopal episodes for more than a month. The patient denies any chest pain or shortness o f breath. Echocardiogram showed severe aortic stenosis. PAST MEDICAL HISTORY: Osteopenia, osteoarthritis. PAST SURGICAL HISTORY: Tonsillectomy. HOME MEDICATIONS: Fosamax 70 mg p.o. daily, aspirin 81 mg p.o. daily, vitamin D3 daily, multivitamin daily. ALLERGIES: No known drug allergies. SOCIAL HISTORY: Denies any tobacco use. Drinks alcohol occasionally. FAMILY HISTORY: Father had heart disease. Twin sister had stroke. REVIEW OF SYSTEMS: Ten-point review of systems is remarkable as noted above. Rest is negative. PHYSICAL EXAMINATION: The patient is alert, oriented in time, place, and person. VITAL SIGNS: Bloo d pressure 155/87, pulse 66, room air saturation 95%, temperature of 36.7. HEENT: Head is normoceph alic, atraumatic. There is no icterus. Neck is suppler. No JVD or thyromegaly, or lymphadenopathy. LUNGS: Clear to auscultation bilaterally. HEART: Regular rate and rhythm, S1, S2. There is a 3/ 6 systolic murmur present. Abdomen is soft, nontender, nondistended. No palpable masses. EXTREMITI ES: No cyanosis, clubbing, or edema. NEURO: Grossly intact. SKIN: Unremarkable. BACK EXAMINATIO N: Unremarkable. LABORATORY DATA: Echocardiogram showed severe aortic stenosis. Cardiac catheterization showed eject ion fraction that was preserved, mild ascending aortic aneurysm. NO significant coronary artery dise ase. ASSESSMENT AND PLAN: The patient with symptomatic severe aortic stenosis. I discussed with the inez ent and her the natural history of the disease and the management options. Given patient's a ge and frailty, she will be monitored for a surgical aortic valve replacement and should be a good ca ndidate for transcatheter aortic valve replacement. I explained to her the risks, benefits, and alte rnatives to a transcatheter aortic valve replacement, and she has elected to proceed. /[id number]/MODL
[2018-05-09] MEDS: METOPROLOL TARTRATE 25 MG TAB PO SCH ×2 (08:07→20:31)
--- NOTE | 2018-05-09 11:37 | HOSPPROG ---
Hospitalist Progress Note Assessment/Plan: #Critical Aortic stenosis #Ascending Thoracic Aortic aneurysm #HTN -Metoprolol #SVT: Metoprolol Plan: Cards following. Cardiac cath with no significant CAD. They feel that she is a good candidate for either TAVR or open aortic valve replacement. Cardiothoracic surgery has been consulted and they recommend TAVR Likely TAVR on Thursday cont Metoprolol, started during this hospitalization Subjective: no cp or sob. some dizzyness intermittent. Objective: Vital Signs Temp Pulse Resp BP Pulse Ox 36.6 C 61 19 135/91 H 94 05/09/18 11:33 05/09/18 11:33 05/09/18 11:33 05/09/18 11:33 05/09/18 11:33 05/08/18 05/09/18 05/10/18 05:59 05:59 05:59 Intake Total 920 960 Output Total 550 1950 250 Balance 370 -990 -250 PT 12.9 SEC (12.0-15.0) 05/06/18 10:46 INR 0.95 (0.83-1.16) 05/06/18 10:46 - Physical Exam Constitutional: no apparent distress Eyes: PERRL Ears, Nose, Mouth, Throat: moist mucous membranes, hearing normal Cardiovascular: regular rate and rhythym, systolic murmur Respiratory: no respiratory distress, no rales or rhonchi, clear to auscultation Gastrointestinal: normoactive bowel sounds, soft, non-tender abdomen Skin: warm Neurologic: AAOx3 Psychiatric: interacting appropriately, not anxious, not encephalopathic Lymph, Heme, Immunologic: No petechiae ICD10 Worksheet Patient Problems: Problems Problem Status Onset Aortic stenosis with bicuspid valve Acute
--- NOTE | 2018-05-09 13:40 | SOAPPROG ---
KENAN Progress Note Assessment/Plan: Assessment: 77-year-old female with known critical aortic stenosis. She was admitted with symptoms of dyspnea and near syncope. She has had an echocardiogram as recently as 05/05/2018 which was done in our office. This demonstrated a normal ejection fraction, mild LVH, critical aortic stenosis with a mean transvalvular gradient of 54 mm Hg and an ascending aorta that measures 4.4 cm. The morphology of the aortic valve was not discernible on that study. Plan: There are plans for her to undergo transcatheter aortic valve replacement on Thursday. We will continue to monitor her on telemetry. 05/09/18 13:37 Subjective: She states that she is feeling well today. She really has not done anything physical. She slept well. She is not complaining of any chest discomfort, dizziness or lightheadedness. She has been seen by cardiothoracic surgery with plans for TAVR on Thursday. Objective: Vital Signs Temp Pulse Resp BP Pulse Ox 36.6 C 61 19 135/91 H 94 05/09/18 11:33 05/09/18 11:33 05/09/18 11:33 05/09/18 11:33 05/09/18 11:33 05/08/18 05/09/18 05/10/18 05:59 05:59 05:59 Intake Total 920 960 Output Total 550 1950 250 Balance 370 -990 -250 PT 12.9 SEC (12.0-15.0) 05/06/18 10:46 INR 0.95 (0.83-1.16) 05/06/18 10:46 Physical Exam - Physical Exam General Appearance: WD/WN, alert, no apparent distress EENT: PERRL/EOMI, normal ENT inspection, pharynx normal, TMs normal Neck: non-tender, full range of motion, supple, normal inspection Respiratory: chest non-tender, lungs clear, normal breath sounds Cardiac/Chest: normal peripheral pulses, regular rate, rhythm, systolic murmur ( Harsh, late-peaking systolic ejection murmur left sternal border) Peripheral Pulses: 2+: carotid (R), carotid (L), femoral (R), femoral (L), dorsalis-pedis (R), dorsalis-pedis (L) Abdomen: normal bowel sounds, non-tender, soft Pelvic Exam: deferred Rectal: deferred Back: Normal inspection Skin: normal color, warm/dry Lymphatic: no adenopathy Extremities: normal range of motion, non-tender, normal inspection, normal capillary refill Neuro/Psych: no motor/sensory deficits, alert, normal mood/affect, oriented x 3 ICD10 Worksheet Patient Problems: Problems Problem Status Onset Aortic stenosis with bicuspid valve Acute
[2018-05-09] MEDS ORDERED: CHLORHEXIDINE GLUC HIBICLENS 118 ML BTL TP ONE (20:15)
[2018-05-10 05:41] LABS: PLATELET COUNT 197 10^3/uL (150-400)
[2018-05-10] MEDS ORDERED: NS 1,000 ML IV ONE (07:36)
--- NOTE | 2018-05-10 08:07 | GCON ---
TAVR CONSULT CHIEF COMPLAINT: Syncope/dizziness/lightheadedness. HISTORY OF PRESENT ILLNESS: This is a 77-year-old female with recent history of worsening dizziness and lightheadedness. The patient had a known history of aortic stenosis, had a recent echocardiogram in [facility] which showed severe aortic stenosis with valve area of less than 0.82 with velociti es of over 4.0. The patient was admitted by her primary care physician to [facility] or further evaluation. She was seen by Cardiology as well as CT Surgery. Dr. Estevan Thomas from CT Surgery fully evaluated the patient. The patient did have on her echocardiogram a dilated ascending aorta of approximately 4.4; however, the aortic root appeared to be of normal size, and there was no dissection or perforations noted. Given the patient's age, size, as well as overall frailty, Dr. Devan romero determined the patient would be better suited for TAVR. This was corroborated by lorie Horne ur 2nd CT surgery consult, who agreed that the patient would be better suited for TAVR rather than op en AVR/ascending aortic repair. I am consulting with the patient today about performing a TAVR proce [facility]. Currently, blood pressure and heart rate are stable. She denies any chest pain. No dyspnea a t rest. PAST MEDICAL HISTORY: Significant for osteopenia, history of known bicuspid aortic valve. PAST SURGICAL HISTORY: Tonsillectomy. HOME MEDICATIONS: Multivitamins, Fosamax. FAMILY HISTORY: Significant for valvular heart disease. SOCIAL HISTORY: She is retired. Lives with her . REVIEW OF SYSTEMS: Patient currently denies any visual change. No headache. No chest pain. No osiel al pain. No throat pain. No neck pain. No back pain. No abdominal discomfort. No lower extremity pain. No neurologic deficits. PHYSICAL EXAMINATION: VITAL SIGNS: The patient is currently afebrile, 96. Blood pressure presently 120/70 with a heart of 72, respirations 12, satting 95% on room air. HEENT: Pupils equal, round, a nd reactive to light and accommodation. Extraocular movements intact. CARDIOVASCULAR: Regular rhyt hm. S1, S2. There is a 3/6 systolic murmur throughout the precordial base. ABDOMEN: Soft, nontend er. No guarding. EXTREMITIES. No clubbing. No cyanosis. No edema. LUNGS: Clear to auscultation bilaterally. NEUROLOGIC: The p atient alert and oriented x3. LABORATORY VALUES: Currently show white cells 7.1, hemoglobin 13.6, hematocrit 40, platelet count of 197. Creatinine 0.7. ECG shows normal sinus rhythm with nonspecific T-wave changes. ASSESSMENT/PLAN: Dizziness, lightheadedness/critical aortic stenosis. At this time, the patient has clear severe symptomatic aortic stenosis. I have discussed the case in depth with both Dr. Martha hazel nd Dr. Pina from CT Surgery. Both are in agreement that the patient would be better suited with transcatheter aortic valve replacement versus aortic valve replacement/ascending aortic repair. I jack ve spoken with Dr. Thomas about the ascending aorta as well. Given her overall frailty, Dr. Thomas f eels transcatheter aortic valve replacement would be better suited than a larger open procedure. We will continue to monitor her valvular function obviously with serial echocardiograms once the transca theter aortic valve replacement is performed as well as monitoring the size of her ascending aorta. I have explained the risks of the transcatheter aortic valve replacement procedure to the patient in depth including bleeding, perforation, stroke, and possible , and she would like to proceed. Javi han questions have been answered to her. We will plan on performing a transfemoral approach later this morning. Patient will be n.p.o. at this time. /[id number]/MODL
[2018-05-10] MEDS ORDERED: ceFAZolin 2 GM/DEXTROSE 100 ML IV ONE (08:30)
[2018-05-10] MEDS ORDERED: LIDOCAINE 1% 300 MG/30 ML SDV ONE (09:03)
[2018-05-10] MEDS ORDERED: IOPAMIDOL (ISOVUE-370) 150 ML BTL IV ONE (09:04)
--- NOTE | 2018-05-10 09:11 | PDANEPAE ---
ANE History of Present Illness tavr ANE Past Medical History - Cardiovascular History Hx Hypertension: Yes Hx Arrhythmias: No Hx Chest Pain: No Hx Coronary Artery / Peripheral Vascular Disease: No Hx CHF / Valvular Disease: Yes Hx Palpitations: No - Pulmonary History Hx COPD: No Hx Asthma/Reactive Airway Disease: No Hx Recent Upper Respiratory Infection: No Hx Oxygen in Use at Home: No Hx Sleep Apnea: No Sleep Apnea Screening Result - Last Documented: Negative - Neurologic History Hx Cerebrovascular Accident: No Hx Seizures: No Hx Dementia: No - Endocrine History Hx Diabetes: No Hypothyroid: No Hyperthyroid: No Obesity: mild - Renal History Hx Renal Disorders: No - Liver History Hx Hepatic Disorders: No ANE Review of Systems Review of Systems: - Exercise capacity Exercise capacity: >=4 METS ANE Patient History - Allergies Allergies/Adverse Reactions: No Known Allergies Allergy (Verified 05/06/18 11:38) - Home Medications Home medications: home medication list seen and reviewed Home Medications: Alendronate Sodium [Fosamax 70 MG (*)] 70 mg PO LOCKETT@0700 05/06/18 [Last Taken 10/14] Aspirin [Aspirin 81mg (*)] 81 mg PO DAILY 05/06/18 [Last Taken 05/04/18] Cholecalciferol Vit D3 [Vitamin D3 (*)] 1,000 units PO DAILY 05/06/18 [Last Taken Unknown] Multivitamins [Multivitamin (*)] 1 each PO DAILY 05/06/18 [Last Taken Unknown] - NPO status NPO Since - Liquids (Date): 05/10/18 NPO Since - Liquids (Time): 00:00 NPO Since - Solids (Date): 05/10/18 NPO Since - Solids (Time): 00:00 - Anes Hx Anes Hx: no prior problems - Smoking Hx Smoking Status: Never smoked ANE Labs/Vital Signs - Labs Result Diagrams: 05/10/18 05:00 05/10/18 05:00 - Vital Signs Blood Pressure: 133/76 Heart Rate: 67 Respiratory Rate: 19 O2 Sat (%): 95 Height: 149.86 cm Weight: 67.2 kg ANE Physical Exam - Airway Mallampati Score: Class 2 Mouth exam: normal dental/mouth exam - Cardiovascular Cardiovascular: regular rate and rhythym - ASA Status ASA Status: III ANE Anesthesia Plan Anesthesia Plan: MAC Lines/Monitors: central line
[2018-05-10] MEDS ORDERED: PROPOFOL/EMULSION 500 MG/50 ML BOTTLE IV ONE (09:13)
[2018-05-10] MEDS ORDERED: fentaNYL 100 MCG/2 ML INJ ONE (09:13)
[2018-05-10] MEDS ORDERED: HEPARIN 10,000 UNIT/10 ML MDV (1,000 UNIT/ML) ONE (09:29)
[2018-05-10] MEDS ORDERED: DEXMEDETOMIDINE HCL 400 MCG in NS 100 ML IV SCH (09:30)
[2018-05-10] MEDS ORDERED: PHENYLEPHRINE HCL 100 MCG/ML SYR ONE ×2 (09:47→10:21)
[2018-05-10] MEDS ORDERED: ePHEDrine SULFATE 25 MG/5 ML SYR ONE (10:10)
[2018-05-10] MEDS ORDERED: PROTAMINE SULFATE 50 MG/5 ML VIAL IVP ONE (10:28)
[2018-05-10] MEDS ORDERED: NITROGLYCERIN 50 MG/10 ML SDV IV ONE (10:35)
[2018-05-10] MEDS ORDERED: NALOXONE HCL 0.4 MG/ML INJ IVP PRN (11:00)
[2018-05-10] MEDS ORDERED: fentaNYL 100 MCG/2 ML INJ IVP PRN (11:00)
[2018-05-10] MEDS ORDERED: ALBUTEROL 3 ML DEYVIAL IH PRN (11:00)
[2018-05-10] MEDS ORDERED: ONDANSETRON 4 MG/2 ML VIAL IVP PRN (11:00)
--- NOTE | 2018-05-10 11:00 | POSTANESTH ---
Post Anesthetic Evaluation Cardiovascular Status: Normal, Stable Respiratory Status: Normal, Stable Level of Consciousness/Mental Status: Can Participate in Eval Pain Control: Adequate, Prn Tx Ordered Nausea/Vomiting Control: Adequate, Prn Tx Ordered Complications Possibly Related to Anesthesia: None Noted
--- NOTE | 2018-05-10 11:37 | CPIP ---
DATE OF PROCEDURE: 05/06/2018 INDICATION FOR PROCEDURE: Critical aortic stenosis, symptomatic aortic stenosis. CO-SURGEONS: Dr. Estevan Thomas, Dr. Nico Loera PROCEDURE: 1. Nonselective right groin sheathogram. 2. Nonselective left groin sheathogram. 3. Upsizing the right common femoral artery sheath to 16-Faroese sheath after Percloses. 4. Perclose of left common femoral artery. 5. Left heart catheterization. 6. Placement of Medtronic CoreValve Evolute Pro 26 mm valve via the transfemoral route. HISTORY: Briefly, this is a 77-year-old female with history of critical symptoms of severe symptomat ic aortic stenosis. The patient has been evaluated by both Dr. Pina and Dr. Thomas to be a suita ble candidate for transfemoral TAVR. DESCRIPTION OF PROCEDURE: After informed consent, the patient was brought to [facility], where the patient was placed under MAC anesthesia by Dr. Nico Loera. Central line was placed in the right IJ with te mporary pacemaker placed in right ventricle, capture being assessed. 6-Faroese sheath placed in the left femoral artery, verified angiographically. 6-Faroese sheath placed in the right common femoral artery, verified angiographically. Right common femoral artery upsized to a 16-Faroese sheath after bilateral Perclose placement. Left common femoral artery was Preclosed a nd upsized to an 8-Faroese sheath. The patient was administered a total of 8000 heparin IV. The valv e was crossed with AL1 catheter with straight stiff Glidewire, switched out for a pigtail catheter, s witched out for a Confida wire. Balloon aortic valvuloplasty was then commenced with an 18 x 16 ball oon. After this was performed, we then removed the balloon. Proceeded with placement of a Medtronic CoreValve Evolut Pro 26 mm valve. This was deployed successfully. After deployment, there was stil l significant waste to this valve. We then post-dilated this valve with a 20 x [address] Z-[address]-dilatation, echocardiographic images showed excellent patency of the valve area with excellent kehinde osition of the valve, with expansion of the valve, and with no evidence of strut malposition. The wi re was then pulled back. The right groin was closed with double Perclose. The left groin was closed with Perclose. The patient tolerated the procedure well with no complications. IMPRESSION: Successful placement of Medtronic CoreValve Evolut Pro 26 mm valve by the transfemoral r oute. PLAN: The patient be admitted to PCU. Further orders following clinical course. /[id number]/MODL
[2018-05-10] MEDS: METOPROLOL TARTRATE 25 MG TAB PO SCH ×2 (12:14→20:28)
--- NOTE | 2018-05-10 12:34 | GOP ---
DATE OF OPERATION: 05/10/2018 SURGEON: Estevan Thomas MD PREOPERATIVE DIAGNOSIS: Severe symptomatic aortic stenosis. POSTOPERATIVE DIAGNOSIS: Severe symptomatic aortic stenosis. PROCEDURE PERFORMED: Transcatheter aortic valve replacement using a 26 mm Evolut Pro device via righ t femoral access. FINDINGS: INDICATIONS: The patient is a 77-year-old woman with critical aortic stenosis. She has had multiple episodes of dizziness and near syncope. She was deemed to be high risk with an STS score of over 4, she also has frailty. She has a very small ascending aortic aneurysm, which is asymptomatic and wit hout indication for repair at this time. The patient was recommended to undergo a transcatheter aort ic valve replacement after discussion of the need for ongoing surveillance of her ascending aorta. DESCRIPTION OF PROCEDURE: Patient to the clinical laboratory technician, placed on the table in supine position. After th e induction of monitored anesthesia placement of a transvenous pacemaker. Sterile prep and drape wer e performed. Intravenous antibiotics were administered. Access was percutaneous femoral on the righ t side. A 16-Greek sheath was placed with Perclose devices. On the left side an 8-Greek sheath wa s placed. This was monitored for blood pressure, and the pigtail catheter was also placed through he re. Once we crossed the valve we put a Chatalog pre curved wire in the ventricle. The device was b rought up then under the field and checked that it was loaded properly. With myself in position 1, Don Charles in position 2 we first predilated the valve with an 18-Greek balloon. Next, we then brought the device up and passed it under fluoroscopic guidance across the valve and un antonia rapid pacing deployed the valve without incident. It looked as though the frame was not complete ly extended; so, we post dilated it with a 20 mm balloon under rapid pacing. We were quite pleased w ith this result. Echocardiography confirmed an excellent placement with no perivalvular leak. The s ben was then removed and Perclose devices were used to close the right common femoral artery. A Pe rclose device was also used for closing the left common femoral artery. The protamine was administer ed, and the patient was returned to the recovery area in stable condition. STONE ENGRAVER: Michael Charles MD. /[id number]/MODL
--- NOTE | 2018-05-10 14:08 | ASMTCMCOM ---
CM Note CM Note Notes: 05/10/2018 Case Management Note Discussed pt during rounds this morning. Pt to have TAVR today. There are no therapy evals ordered at this time. Case Management d/c poc: anticipating home with family support and follow up as directed. Case Management to follow. Date Signed: 05/10/2018 02:07 PM Electronically Signed By:Tamra Harding RN
--- NOTE | 2018-05-10 17:24 | HOSPPROG ---
Hospitalist Progress Note Assessment/Plan: 77yo F here with sympomatic critical aortic stenosis now s/p TAVR. Medicine following for chronic medical issues. #Critical Aortic stenosis - Plavix started, repeat echo ordered #Ascending Thoracic Aortic aneurysm #HTN -Metoprolol started this admission #SVT: - BB as above, monitor on telemetry Dispo: Remain inpatient for post-surgical monitoring. Subjective: I saw her after the procedure, she is doing well. Some mild back pain from having to lie flat. No sob, chest pain. Objective: Vital Signs Temp Pulse Resp BP Pulse Ox 36.4 C 73 22 H 128/73 H 95 05/10/18 16:00 05/10/18 16:00 05/10/18 16:00 05/10/18 16:00 05/10/18 16:00 Laboratory Results 05/10/18 05:00 05/10/18 05:00 05/09/18 05/10/18 05/11/18 05:59 05:59 05:59 Intake Total 610 113 6638 Output Total 1950 1750 550 Balance -990 -1100 450 PT 12.9 SEC (12.0-15.0) 05/06/18 10:46 INR 0.95 (0.83-1.16) 05/06/18 10:46 - Physical Exam Constitutional: no apparent distress, appears nourished, not in pain Eyes: PERRL, anicteric sclera, EOMI Ears, Nose, Mouth, Throat: moist mucous membranes, hearing normal, ears appear normal, no oral mucosal ulcers Cardiovascular: regular rate and rhythym, systolic murmur (early systolic at RUSB without radiation), other (right groin site with some blood on gauze but no hematoma or bruit), No edema Respiratory: no respiratory distress, no rales or rhonchi, clear to auscultation Gastrointestinal: normoactive bowel sounds, soft, non-tender abdomen, no palpable masses Genitourinary: no bladder fullness, no bladder tenderness, no renal bruits Skin: no rashes or abrasions, no fluctuance, no induration Musculoskeletal: full muscle strength, no muscle tenderness, normal joint ROM Neurologic: AAOx3, sensation intact bilaterally Psychiatric: interacting appropriately, not anxious, not encephalopathic, thought process linear ICD10 Worksheet Patient Problems: Problems Problem Status Onset Aortic stenosis with bicuspid valve Acute Pulmonary hypertension due to left heart disease Acute
[2018-05-11 05:09] LABS: PLATELET COUNT 172 10^3/uL (150-400)
[2018-05-11 05:11] LABS: INR 1.04 (0.83-1.16); PROTIME(PATIENT) 13.8 SEC (12.0-15.0)
--- NOTE | 2018-05-11 06:50 | PDCARPN ---
Cardiology Progress Note Chief Complaint: dizziness Assessment/Plan: Assessment: severe s/p TAVR Plan: 05/11/18 06:49 doing well OOB IS check echo Subjective: doing well Reviewed/Discussed With: multidisciplinary team Time Spent with Patient: greater than 25 minutes Time Spent with Patient: Greater than 25 minutes spent on this patients care, greater than 50% of time spent counseling, educating, and coordinating care regarding the above mentioned plan. Objective: Vital Signs (8 Hrs) Temp Pulse Resp BP Pulse Ox 05/11/18 04:00 36.6 C 84 19 137/67 H 93 05/10/18 23:27 36.3 C 67 20 137/67 H 96 Intake/Output (24 Hrs) 05/10/18 05/11/18 05/12/18 05:59 05:59 05:59 Intake Total 650 2090 Output Total 1750 1275 Balance -1100 815 Intake: Oral (ml) 650 1090 IV Intake (ml) 1000 Output: Urine (ml) 1750 1275 Bedpan 350 Toilet 1750 925 Other: Weight 67.2 kg 67.9 kg Intake Quantity Yes Sufficient Number of Voids Toilet 1 Number of Stools Toilet 1 Result Diagrams: 05/11/18 03:26 05/11/18 03:26 - Physical Exam Constitutional: no apparent distress Eyes: PERRL Ears, Nose, Mouth, Throat: moist mucous membranes Cardiovascular: regular rate and rhythm Peripheral Pulses: 1+: femoral (R), femoral (L) Respiratory: clear to auscultate bilat Gastrointestinal: normoactive bowel sounds Genitourinary: no suprapubic tenderness Skin: no rashes Musculoskeletal: no muscular tenderness Neurologic: AAOx3 Psychiatric: cooperative ICD10 Worksheet Patient Problems: Problems Problem Status Onset Aortic stenosis with bicuspid valve Acute Pulmonary hypertension due to left heart disease Acute
[2018-05-11] MEDS: METOPROLOL TARTRATE 25 MG TAB PO SCH ×2 (08:37→21:00)
[2018-05-11] MEDS ORDERED: CLOPIDOGREL BISULFATE 75 MG TAB PO SCH (09:00)
--- NOTE | 2018-05-11 10:56 | HOSPPROG ---
Hospitalist Progress Note Assessment/Plan: 77yo F here with sympomatic critical aortic stenosis now s/p TAVR. Medicine following for chronic medical issues. Patient new to me and chart reviewed. #Critical Aortic stenosis * Status post TAVR, postop was quite dizzy and weak. Feeling better today * Continue Plavix * Reviewed cardiology notes * Groin looks good * Echocardiogram today post TAVR # leukocytosis, likely postop stress will follow up in a.m. #Ascending Thoracic Aortic aneurysm, currently on a beta-kaleigh #HTN; on beta-kaleigh, adequate control. #SVT: Continue to monitor on tele Disposition: Defer to Cardiology regarding disposition, patient will likely be discharged tomorrow, depending on Cardiology recs Subjective: Patient new to me and chart reviewed. Feels good but quite weak. Was quite dizzy yesterday and feeling slightly better today. Objective: Vital Signs Temp Pulse Resp BP Pulse Ox 37.3 C 92 14 125/82 H 95 05/11/18 07:48 05/11/18 07:48 05/11/18 07:48 05/11/18 07:48 05/11/18 07:48 Laboratory Results 05/11/18 03:26 05/11/18 03:26 05/10/18 05/11/18 05/12/18 05:59 05:59 05:59 Intake Total 650 2090 Output Total 1750 1275 Balance -1100 815 PT 13.8 SEC (12.0-15.0) 05/11/18 03:26 INR 1.04 (0.83-1.16) 05/11/18 03:26 - Physical Exam Constitutional: no apparent distress, not in pain Eyes: PERRL, anicteric sclera Ears, Nose, Mouth, Throat: moist mucous membranes Cardiovascular: regular rate and rhythym, systolic murmur Respiratory: no respiratory distress, clear to auscultation, reduced air movement (Basis) Gastrointestinal: soft, non-tender abdomen Genitourinary: No laboy in urethra Skin: other (Small hematoma right groin) Musculoskeletal: generalized weakness Neurologic: AAOx3 Psychiatric: interacting appropriately ICD10 Worksheet Patient Problems: Problems Problem Status Onset Aortic stenosis with bicuspid valve Acute Pulmonary hypertension due to left heart disease Acute
--- NOTE | 2018-05-11 11:25 | CPEKG ---
Test Reason : OPEN Blood Pressure : / mmHG Vent. Rate : 075 BPM Atrial Rate : 079 BPM P-R Int : 128 ms QRS Dur : 083 ms QT Int : 389 ms P-R-T Axes : 034 -32 266 degrees QTc Int : 435 ms Sinus rhythm LVH with secondary repolarization abnormality Confirmed by Mando Rudolph ([id number]) on 05/11/2018 11:24:48 AM Referred By: Confirmed By:Mando Rudolph
--- NOTE | 2018-05-11 12:30 | ECHO ---
[email or web address] [address] [address] Main: [phone] Fax: Transthoracic Echocardiogram Name: KATE BARONE MR#: [id number] Study Date: 05/11/2018 Study Time: 10:28 AM Date of : 1940 Age: 77 year(s) Height: 149.9 cm (59 in.) Weight: 67.13 kg (148 lb.) BSA: 1.62 m2 Gender: Female Examination: Echo Indication: Post TAVR Image Quality: Contrast: Requested by: Michael Charles BP: 125 mmHg/82 mmHg Heart Rate: Rhythm: Indication: Post TAVR Procedure Staff Cabana Attendant: Fahad Barger RDCS Reading Physician: Michael Charles MD Requesting Provider: Conclusions: Normal global systolic LV function. EF is 65 %. There is a Corevalve in the aortic position. There is no evidence of significant AI or . No evidence of a perivalvular leak.. Trivial tricuspid valve regurgitation. The pulmonary artery pressure is normal. Measurements: Chambers Valvular Assessment AV/MV Valvular Assessment TV/PV Normal Normal Normal Name Value Range Name Value Range Name Value Range IVSd (2D): 0.9 cm (0.6 cm-1.1 AV Vmax: 2.05 m/s (1 m/s-1.7 TR Vmax: 2.97 mm/s ( - ) cm) m/s) TR PGmax: 35 mmHg ( - ) LVDd (2D): 4.7 cm (3.9 cm-5.3 AV maxP mmHg ( - ) syst. PAP: 40 mmHg ( - ) cm) AV meanP mmHg ( - ) PV Vmax: 0.98 m/s (0.6 m/s-0.9 LVDs (2D): 2.6 cm (2.1 cm-4 LVOT Vmax: 0.74 m/s (0.7 m/s-1.1 m/s) cm) m/s) PV PGmax: 4 mmHg ( - ) LVPWd (2D): 0.8 cm ( - ) MIRI (Vmax): 1.1 cm2 ( - ) LVOTd 2.0 cm 2.0 cm mm MIRI (VTI): 1.4 cm ( - ) LVEF (2D): 65 (>=54 %) MV E Vmax: 0.61 m/s ( - ) MV A Vmax: 1.12 m/s ( - ) MV E/A: 0.54 ( - ) Continued Measurements: Chambers Valvular Assessment TV/PV Name Value Name Value LADs Lon.6 cm CVP (est.): 5 mmHg LA Area: 16.3 cm2 Patient: KATE BARONE Study Date: 05/11/2018 Page 1 of 2 10:28 AM Findings: Left Ventricle: Normal size left ventricle. No LV hypertrophy. Normal global systolic LV function. EF is 65 %. No regional wall motion abnormality. Grade 1 diastolic dysfunction (abnormal relaxation). Right Ventricle: Normal size right ventricle. Normal RV function. Left Atrium: The left atrium is normal in size. Right Atrium: The right atrium is normal in size. Mitral Valve: The mitral valve is normal in appearance and function. Aortic Valve: There is a Corevalve in the aortic position. There is no evidence of significant AI or . No evidence of a perivalvular leak.. Tricuspid Valve: The tricuspid valve appears normal. Trivial tricuspid valve regurgitation. The pulmonary artery pressure is normal. Aorta: The aorta is normal. Pericardium: No pericardial effusion. (No Signature Object) Patient: KATE BARONE Study Date: 05/11/2018 Page 2 of 2 10:28 AM [id number]
--- NOTE | 2018-05-11 14:49 | ASMTCMCOM ---
CM Note CM Note Notes: During rounds, an anticipated d/c for tomorrow, the , was discussed. D/C Plan: Anticipate independent. Date Signed: 05/11/2018 02:48 PM Electronically Signed By:Tari Smith
[2018-05-11] MEDS: FLUTICASONE NASAL 120 SPRAYS/16 GM MDI EACHNARE PRN (17:15)
[2018-05-12 04:26] LABS: PLATELET COUNT 149 10^3/uL (150-400)
[2018-05-12 04:31] LABS: INR 1.13 (0.83-1.16); PROTIME(PATIENT) 14.7 SEC (12.0-15.0)
--- NOTE | 2018-05-12 06:54 | PDCARPN ---
Cardiology Progress Note Chief Complaint: dizziness Assessment/Plan: Assessment: severe s/p TAVR Plan: 05/11/18 06:49 doing well OOB IS check echo 05/12/18 06:52 doing well d/c home today f/u in office next week Subjective: doing well Reviewed/Discussed With: multidisciplinary team Time Spent with Patient: greater than 25 minutes Time Spent with Patient: Greater than 25 minutes spent on this patients care, greater than 50% of time spent counseling, educating, and coordinating care regarding the above mentioned plan. Objective: Vital Signs (8 Hrs) Temp Pulse Resp BP Pulse Ox 05/12/18 04:00 37.1 C 74 18 127/67 H 95 05/11/18 23:22 36.9 C 70 20 135/66 H 96 Intake/Output (24 Hrs) 05/11/18 05/12/18 05/13/18 05:59 05:59 05:59 Intake Total 2090 200 240 Output Total 1275 1250 Balance 815 -1050 240 Intake: Oral (ml) 1090 200 240 IV Intake (ml) 1000 Output: Urine (ml) 1275 1250 Bedpan 350 Toilet 925 1250 Other: Weight 67.9 kg 67.9 kg Intake Quantity Yes Yes Sufficient Number of Voids Toilet 1 1 1 Result Diagrams: 05/12/18 03:11 05/12/18 03:11 - Physical Exam Constitutional: healthy appearing Eyes: PERRL Ears, Nose, Mouth, Throat: moist mucous membranes Cardiovascular: regular rate and rhythm, no murmurs Peripheral Pulses: 1+: femoral (R), femoral (L) Respiratory: clear to auscultate bilat Gastrointestinal: normoactive bowel sounds Genitourinary: no suprapubic tenderness Skin: no rashes Musculoskeletal: no muscular tenderness Neurologic: AAOx3 Psychiatric: cooperative ICD10 Worksheet Patient Problems: Problems Problem Status Onset Aortic stenosis with bicuspid valve Acute Pulmonary hypertension due to left heart disease Acute
[2018-05-12 07:22] VITALS: BP 127/74
--- NOTE | 2018-05-12 07:47 | GDS ---
DISCHARGE DIAGNOSES: 1. Critical aortic stenosis. 2. Dizziness. HOSPITAL COURSE: Briefly, this is a 77-year-old female who was admitted on 05/06/2018, after her out patient echocardiogram shows critical aortic stenosis. The patient had been having worsening dizzy s pells as an outpatient. After evaluation, the patient was deemed to be a suitable candidate for norman sfemoral TAVR by Dr. Thomas and Dr. Robert Pina. The patient did have a dilated ascending aorta at 4.5 cm. However, given her overall frailty and size, as well as stability of the aorta with no di ssection, the patient was deemed to be a better candidate for TAVR rather than an open AVR/ascending root repair. The patient underwent successful transfemoral TAVR with Medtronic CoreValve on 05/10/20. Post procedure, the patient has done very well. Echocardiogram post procedure shows normal vent ricular function with no perivalvular leak and normal TAVR function. The patient's laboratory values showed a slight decrease of her hemoglobin down to 11.4. However, her kidney function was normal. The patient has been ambulating in the halls without problems. The groins are soft. The patient is going to be discharged home this morning with her home medication, including Lopressor 12.5 twice iris ly, as well as baby aspirin. She will follow up in the office in 1 week's time. /[id number]/MODL
[2018-05-12] MEDS: FLUTICASONE NASAL 120 SPRAYS/16 GM MDI EACHNARE PRN (07:48)
[2018-05-12] MEDS ORDERED: ASPIRIN 81 MG CHEWABLE TAB PO SCH (09:00)
--- NOTE | 2018-05-12 09:26 | HOSPPROG ---
Hospitalist Progress Note Assessment/Plan: DIAGNOSES: * severe aortic stenosis, symptomatic * thoracic aortic aneurysm * nocturnal hypoxemia noted here, raising some concern for sleep apnea The patient has done quite well after her procedure. She is up walking with less lightheadedness No signs or symptoms of any complications The patient has had nocturnal hypoxemia overnight last night as well as overnight on the night of her admission. Her has described that she does do some snoring home. On her echocardiogram here she does not have pulmonary hypertension. PLANS: * Discharge to home at this time * Follow-up in the Cardiology Clinic with Dr. DIAZ as directed * I recommended the patient and that she consider having a home sleep study done for possible sleep apnea which can be arranged with her primary care physician SUBJECTIVE: Feels well Up walking in the hallways No lightheadedness, shortness of breath or chest pain OBJECTIVE Vitals reviewed: Overall stable, though had some hypoxemia during sleep last night as well as on the night of admission Production Support Specialist, my review: Sinus rhythm Exam: alert oriented skin warm dry color ok resps not labored lungs clear BSs heart regular iv site ok Objective: Vital Signs Temp Pulse Resp BP Pulse Ox 36.8 C 72 18 127/74 H 94 05/12/18 07:21 05/12/18 07:21 05/12/18 07:21 05/12/18 07:21 05/12/18 07:21 Laboratory Results 05/12/18 03:11 05/12/18 03:11 05/11/18 05/12/18 05/13/18 06:59 06:59 06:59 Intake Total 2090 440 Output Total 1275 1250 Balance 815 -810 PT 14.7 SEC (12.0-15.0) 05/12/18 03:11 INR 1.13 (0.83-1.16) 05/12/18 03:11 ICD10 Worksheet Patient Problems: Problems Problem Status Onset Aortic stenosis with bicuspid valve Acute Pulmonary hypertension due to left heart disease Acute
[2018-05-12] MEDS: METOPROLOL TARTRATE 25 MG TAB PO SCH (09:37)
--- NOTE | 2018-05-12 09:55 | ASMTLACE ---
LACE Length of stay for Answers: 4-6 days current admission Acuity / Level of Answers: Yes Care: Did the patient have an inpatient admission? Comorbidities - select Answers: Other Notes: Osteopenia; Bicuspid all that apply aorta; HTN # of Emergency department Answers: 1-2 visits in the last 6 months Score: 9 Date Signed: 05/12/2018 09:54 AM Electronically Signed By:Tamra Harding RN
--- NOTE | 2018-05-12 10:33 | ASMTDCNOTE ---
Case Management Discharge Discharge Order Complete? Answers: Yes Patient to Obtain Answers: via Family Medications Transportation Arranged Answers: Family/Friends Discharge Comments Notes: 05/12/2018 Case Management Note Pt to discharge independent with follow up as directed. Date Signed: 05/12/2018 10:31 AM Electronically Signed By:Tamra Harding RN
--- NOTE | 2018-05-12 10:36 | ASDISCHSUM ---
Discharge Information Plan Status:Home with No Needs Medically Cleared to Leave:05/11/2018 Discharge Date:05/11/2018 CM D/C Disposition:Home, Routine, Self-Care ADT D/C Disposition:Home, Routine, Self-Care Projected Discharge Date:05/11/2018 Transportation at D/C: Discharge Delay Reason: Follow-Up Date:05/11/2018 Discharge Slot: Final Diagnosis: Placement Information Patient Contact Information Contact Name:LESLY Relationship: Address:[address] City:[place] Alternate Phone: [facility]/Zip Code:[place] [address] Email: Financial Information Financial Class:Medicare Primary Plan Desc:MEDICARE INPATIENT Primary Plan Number:[id number] Secondary Plan Desc:LILLIAN Secondary Plan Number:[id number] Assessment Information LACE LACE Length of stay for Answers: 4-6 days current admission Acuity / Level of Answers: Yes Care: Did the patient have an inpatient admission? Comorbidities - select Answers: Other Notes: Osteopenia; Bicuspid all that apply aorta; HTN # of Emergency department Answers: 1-2 visits in the last 6 months Score: 9 Date Signed: 05/12/2018 09:54 AM Electronically Signed By:Tamra Harding RN [facility] Progress Note CM Note ADRIÁN Note Notes: ADRIÁN spoke to VILLA Deluna about this pt. Pt is a 77 y/o female admitted for near syncope and aortic stenosis. CT will determine if pt will have TAVR or open heart. Needs are TBD at this time. CM to follow. Plan: TBD Date Signed: 05/07/2018 02:06 PM Electronically Signed By:ADRIAN Peraza BC CM Progress Note CM Note CM Note Notes: Plan is for TAVR Thursday 05/10. PT/OT will consult post-operatively. Case Mangement will follow. Date Signed: 05/08/2018 11:33 AM Electronically Signed By:Cassidy Christianson RN BC CM Progress Note CM Note CM Note Notes: 05/10/2018 Case Management Note Discussed pt during rounds this morning. Pt to have TAVR today. There are no therapy evals ordered at this time. Case Management d/c poc: anticipating home with family support and follow up as directed. Case Management to follow. Date Signed: 05/10/2018 02:07 PM Electronically Signed By:Tamra Harding RN BC CM Progress Note CM Note CM Note Notes: During rounds, an anticipated d/c for tomorrow, the , was discussed. D/C Plan: Anticipate independent. Date Signed: 05/11/2018 02:48 PM Electronically Signed By:Tari Smith Case Management Discharge Plan Note Case Management Discharge Discharge Order Complete? Answers: Yes Patient to Obtain Answers: via Family Medications Transportation Arranged Answers: Family/Friends Discharge Comments Notes: 05/12/2018 Case Management Note Pt to discharge independent with follow up as directed. Date Signed: 05/12/2018 10:31 AM Electronically Signed By:Tamra Harding RN Intervention Information Intervention Type:*BENNETT-Signed Date of Service:05/07/2018 03:34 PM Patient Type:Observation Staff Member:Khalida Key Hours: Discipline: Severity: Comment: Intervention Type:*IM-Signed Date of Service:05/12/2018 10:25 AM Patient Type:Inpatient Staff Member:Chantale Barrientos Hours: Discipline: Severity: Comment:
== END 2018-05-12 10:50 | disposition home or self-care (01) | DRG 267 ==
LOC: F2W 13:05 → OBSVTOIN 05-07 15:59
PROVIDERS: ADMIT Family Medicine; ATTEND Family Medicine
DX: I35.0 Nonrheumatic aortic (valve) stenosis (principal); Z00.6 Encounter for examination for normal comparison and control in clinical research program; I10 Essential (primary) hypertension; I71.2 Thoracic aortic aneurysm, without rupture; I47.1 Supraventricular tachycardia
CPT/HCPCS: 84484-PO; C1760; C1769; C1894; G0378; J0461; J0690; J1644; J2250; J2370; J2704; J2720; J3010; Q9967

== ENCOUNTER → 2018-06-09 | Outpatient (CLI) | payer OTHER | LOC: BHFA 11:30 | PROVIDERS: ATTEND Internal Medicine Cardiovascular Disease | DX: Z95.2 Presence of prosthetic heart valve (principal) ==